=== PATIENT | female | born 1960 | race Caucasian/White ===

== ENCOUNTER 2020-03-15 19:32 | Emergency (ER) | payer OTHER ==
[~2020-03-15] VITALS: Ht 162.6 cm; Wt 51.7 kg
== END 2020-03-15 21:09 | disposition home or self-care (01) ==
LOC: ER 19:32
DX: S80.02XS Contusion of left knee, sequela (principal); S80.12XS Contusion of left lower leg, sequela; W18.09XS Striking against other object with subsequent fall, sequela

== ENCOUNTER 2024-06-02 09:05 | Emergency (ER) | payer OTHER ==
[~2024-06-02] VITALS: Ht 162.6 cm; Wt 53.1 kg
== END 2024-06-02 12:39 | disposition home or self-care (01) ==
LOC: ER 09:07
DX: R51.9 Headache, unspecified (principal); Z88.6 Allergy status to analgesic agent; Z88.8 Allergy status to other drugs, medicaments and biological substances

== ENCOUNTER → 2025-01-03 | Emergency (ER) | payer OTHER ==
[~2025-01-03] VITALS: Ht 162.6 cm; Wt 52.2 kg
[~2025-01-03] MED LIST: DEXAMETHASONE SODIUM PHOSPHATE 4 MG/ML VIAL IM ONE; DEXAMETHASONE SODIUM PHOSPHATE 4 MG/ML VIAL ONE; FAMOTIDINE/PF 20 MG in 0.9 % SODIUM CHLORIDE 8 ML IV PUSH STA; FAMOTIDINE/PF 20 MG/2 ML VIAL ONE; ONDANSETRON HCL 2 MG/ML VIAL IV ONE; ONDANSETRON HCL 2 MG/ML VIAL ONE; OSEL75CA PO; PEPCID AC20 MG PO; TUSNEL LIQUID178 ML PO; ZOFRAN8 MG PO
[2025-01-03 13:15] LABS: HEMATOCRIT 40.8 % (36.0-45.00); HEMOGLOBIN 13.6 g/dL (12.0-15.00); MEAN CELL VOLUME 90.5 fL (80.00-100.00); MEAN CORPUSCULAR HEMOGLOBIN 30.2 pg (27.00-32.0); MEAN CORPUSCULAR HGB CONC 33.3 g/dl (32.0-36.0); PLATELET COUNT 242 K/uL (150-450); RED CELL DISTRIBUTION WIDTH 14.2 % (11.5-14.5)
== END | disposition home or self-care (01) ==
LOC: ER 11:36
PROVIDERS: General Practice
DX: R53.81 Other malaise (principal); J10.1 Influenza due to other identified influenza virus with other respiratory manifestations; K29.70 Gastritis, unspecified, without bleeding; Z20.822 Contact with and (suspected) exposure to COVID-19; Z88.5 Allergy status to narcotic agent; Z88.6 Allergy status to analgesic agent